=== PATIENT | male | born 1970 | race Caucasian/White ===

== ENCOUNTER 2025-05-01 17:33 | Emergency (ER) | payer OTHER, SELFPAY ==
--- NOTE | ~2025-05-01 | XR_ITS ---
CLINICAL HISTORY: fall, injury, lac, pain 4 view left knee Comparison: None provided Findings: Bones intact. No dislocations. No significant loss of joint space, osteophytes, or erosions. No joint effusion. Infrapatellar soft tissue swelling. Two small radiopaque densities in the subcutaneous tissues anteromedial to the patella measuring up to 1 mm may be foreign bodies. IMPRESSION: 1. No acute osseous injury. 2. Infrapatellar soft tissue swelling. 3. Two small radiopaque densities in the subcutaneous tissues anteromedial to the patella measuring up to 1 mm may be foreign bodies. This document has been electronically signed by: Juan Carlos Zavala MD on 05/01/2025 18:33:42
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
[2025-05-01 17:59] VITALS: BP 162/90; PULSE 90; RESP 19; TEMP 36.6; O2SAT 98; BMI 24.0
[2025-05-01] MEDS: Lidocaine HCl 1%/Epi 1:100,000 10 ML VIAL 30 ML SUBCUT (21:32)
[2025-05-01 22:00] VITALS: BP 147/79; PULSE 78; TEMP 37.2; O2SAT 96
[2025-05-01 23:05] VITALS: BP 147/79; PULSE 78; RESP 16; TEMP 37.2; O2SAT 96
== END 2025-05-01 23:04 | disposition home or self-care (01) ==
PROVIDERS: Emergency Provider Emergency Medicine
DX: S81.012A Laceration without foreign body, left knee, initial encounter (principal); V18.0XXA Pedal cycle driver injured in noncollision transport accident in nontraffic accident, initial encounter; M25.562 Pain in left knee; Y93.55 Activity, bike riding; Y92.828 Other wilderness area as the place of occurrence of the external cause; Y99.8 Other external cause status
CPT/HCPCS: 12034; 73564; 99284; J2004

== ENCOUNTER → 2025-05-01 18:01 | Outpatient (BNV) | payer SELFPAY | PROVIDERS: Visit Provider Radiology Diagnostic Radiology | DX: R22.42 Localized swelling, mass and lump, left lower limb (principal) | CPT/HCPCS: 73564 ==

== ENCOUNTER 2025-05-03 15:07 | Inpatient (IN) | payer OTHER, SELFPAY ==
--- NOTE | ~2025-05-03 | CT_ITS ---
CLINICAL HISTORY: Cellulitis vs septic arthritis CT left knee with intravenous contrast Comparison: CR - XR KNEE LT 4V - 05/01/25 18:20 EDT Findings: Subcutaneous fluid and edema in the anterior soft tissues of the knee without rim enhancement. Trace subcutaneous air likely from laceration. 2 mm subcutaneous foreign body versus ossicle ( series 3 axial image 79/196). Small joint effusion with partial rim enhancement concerning for developing septic arthritis. Visualized vessels are patent. No acute fracture or dislocation. IMPRESSION: 1. Small joint effusion with partial rim enhancement concerning for developing septic arthritis. 2. Subcutaneous fluid, edema, and trace air in the anterior soft tissues of the knee, likely combination of posttraumatic changes and cellulitis. 3. 2 mm subcutaneous foreign body versus ossicle. This document has been electronically signed by: Juan Carlos Zavala MD on 05/03/2025 22:19:21
[2025-05-03 15:32] VITALS: BP 142/82; PULSE 76; RESP 18; TEMP 36.8; O2SAT 99; BMI 23.8
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
[2025-05-03 15:53] LABS: MANUAL DIFF FLAG NO
[2025-05-03 15:55] LABS: Hematocrit 45.0 % (42.0-52.0); Hemoglobin 15.0 g/dl (14.0-18.0); Imm Gran Abs Auto 0.04 X10*3/uL (0.00-0.03); Imm Gran Pct Auto 0.4 % (0.0-0.4); Lymphocytes Absolute Auto 0.9 X10*3/uL (1.2-4.9); Mean Corpuscular HGB Conc 33.3 g/dl (31.0-36.0); Mean Corpuscular Hemoglobin 28.6 pg (27.0-33.0); Mean Corpuscular Volume 85.7 fL (80.0-98.0); NRBC Abs Auto 0.000 X10*3/uL (0.0-0.012); NRBC Pct Auto 0.0 /100WBC (0.0-0.2); Platelet Count 201 X10*3/uL (160-400); Red Blood Count 5.25 X10*6/uL (4.60-5.80); White Blood Count 10.8 X10*3/uL (4.8-10.8)
[2025-05-03 16:10] LABS: Alanine Aminotransferase 97 U/L (0-40); Albumin Level 4.8 g/dL (3.5-5.0); Alkaline Phosphatase 68 U/L (39-117); Anion Gap 13 (12-20); Aspartate Amino Transferase 66 U/L (5-37); Blood Urea Nitrogen 15 mg/dL (9-16); Calcium 9.9 mg/dL (8.4-10.2); Carbon Dioxide 27 mmol/L (22-29); Chloride 103 mmol/L (96-108); Creatinine Clr Calc Pharmacy 98.0; Estimated Glomerular Filt Rate > 60; Potassium 4.0 mmol/L (3.3-5.1); Sodium 139 mmol/L (135-145); Total Protein 7.8 g/dL (6.5-8.0)
[2025-05-03 19:32] VITALS: BP 138/75; PULSE 75; RESP 18; TEMP 36.7; O2SAT 96
[2025-05-03 20:08] VITALS: BP 130/79; PULSE 71; RESP 16; TEMP 37; O2SAT 96
[2025-05-03 21:02] VITALS: BP 140/81; PULSE 73; RESP 18; TEMP 36.8; O2SAT 98
[2025-05-03] MEDS: vancomycin/NS 2,000 MG/500 ML PLAST..BAG 250 MG IV (21:09)
[2025-05-03] MEDS: iohexoL 350 MG/ML 100 ML INFUS..BTL IV (21:20)
--- NOTE | 2025-05-03 21:22 | P.HPHOSP_ITS ---
History of Present Illness Date of Service: 05/03/25 Attending physician on admission: Mayra Jean Baptiste Chief Complaint: Right thigh/knee pain Mati Bloom is a 54 years old man with past medical history significant for type 2 diabetes mellitus on metformin, hyperlipidemia and hypertension presents to the emergency department after he sustained a left knee laceration 2 days ago. This laceration with sutured and was discharged home to complete a course of 2 antibiotics: Doxycycline and cefepime. He comes today because his knee is quite swollen and red. He denied any discharges from the laceration area. He does have pain upon flexing the knee. He has been taking ibuprofen for pain. He denied any fever or chills. He also denied any acute cardiopulmonary, gastrointestinal or genitourinary symptoms. He denied tobacco smoking, alcohol abuse or illicit drug use. Last Tdap vaccine was 3 years ago. In the ED, he was found to have stable vital signs. Blood workup showed no leukocytosis. CRP is 17.3. Hemoglobin and platelets are normal. There are no electrolyte imbalances. Renal function is normal. His glucose 221. Transaminases and total bilirubin are slightly elevated. Alk-phos is normal. Right knee x-ray (May 03, 2025) showed no acute osseous injury, infrapatellar soft tissue swelling, 2 small radiopaque densities in the subcutaneous tissue anteromedial to the patella measuring up to 1 mm may be foreign bodies. ED tx: Ceftriaxone 2 g IV, vancomycin 2 g IV Review of Systems 2 Review of Systems: All 12 systems were reviewed and normal except as noted in HPI. [facility] Medical History (Updated 05/03/25 @ 22:34 by Mayra Jean Baptiste MD) Type 2 diabetes mellitus Hypertension Social History Alcohol intake: current Alcohol intake frequency: former alcohol drinker Smoked in Last 30 Days: No Use of substances other than those prescribed or required for medical reasons: No Advance Directives: No Advance Directives Information Provided: No Do you have a plan to hurt others: No Plan Meds Allergies Allergy/AdvReac Type Severity Reaction Status Date / Time Penicillins Allergy Unknown Unknown Verified 05/03/25 15:35 Active Medications: Current Medications Sodium Chloride (Ns) 1,000 mls @ 999 mls/hr IV .Q1H1M KADI Stop: 05/03/25 21:45 Last Admin: 05/03/25 20:54 Dose: 999 mls/hr Vancomycin HCl (Vancomycin/Ns) 2,000 mg in 500 mls @ 250 mls/hr IV ONCE ONE Stop: 05/03/25 22:43 Last Admin: 05/03/25 21:09 Dose: 250 mls/hr Home Medications ?Medication ?Instructions ?Recorded ?Confirmed ?Last Taken ?Type acetaminophen 500 mg tablet 500 mg PO Q6H PRN Pain 05/03/25 Unknown History atorvastatin 20 mg tablet 10 mg PO DAILY 05/03/2504/1205/03/25 History lisinopril 40 mg tablet 20 mg PO DAILY 05/03/2504/1205/03/25 History metformin 500 mg tablet 500 mg PO BID 05/03/2505/0305/03/25 History Physical Exam 2 Vital Signs and Narrative: Vital Signs: Last Vital Signs Temp 98.2 F 05/03/25 21:02 Pulse 73 05/03/25 21:02 Resp 18 05/03/25 21:02 BP 140/81 H 05/03/25 21:02 Pulse Ox 98 05/03/25 21:02 O2 Del Method Room Air 05/03/25 21:02 BMI result Body Mass Index 23.8 Constitutional - Awake and Alert, No apparent distress HEENT - PERRLA, EOMI Heart - RRR, No murmurs Lungs - Normal lung expansion, Normal respiratory effort, No respiratory distress, CTA bilaterally Abdominal - NT / ND; +BS; No rebound or guarding Extremities: Musculoskeletal - Normal inspection, normal ROM Skin - Warm/Dry Neurological - Alert & oriented x3. Moving all extremities spontaneously. Normal speech. Psychological - Appropriate affect Results Labs 05/03/25 15:47 05/03/25 15:47 Labs: Laboratory Results - last 24 hr 05/03/25 15:47 MCV 85.7 MCH 28.6 MCHC 33.3 RDW 13.2 Plt Count 201 MPV 9.8 Immature Gran % (Auto) 0.4 Neut % (Auto) 83.8 H Lymph % (Auto) 8.5 L [place] % (Auto) 5.8 Eos % (Auto) 1.1 Baso % (Auto) 0.4 Lymph # (Auto) 0.9 L [place] # (Auto) 0.6 Eos # (Auto) 0.1 Baso # (Auto) 0.0 Abs Immat Gran (auto) 0.04 H Absolute Neuts (auto) 9.1 H Absolute Nucleated RBC 0.000 Nucleated RBC % (auto) 0.0 ESR 14 Anion Gap 13 Estim Creat Clear Calc 98.0 Estimated GFR > 60 Random Glucose 221 H Lactic Acid 1.3 Calcium 9.9 Total Bilirubin 1.1 H AST 66 H ALT 97 H Alkaline Phosphatase 68 C-Reactive Protein 17.63 H Total Protein 7.8 Albumin 4.8 Assessment and Plan (1) Cellulitis of left leg: Status: Acute (2) Hyperlipidemia: Qualifiers: Hyperlipidemia type: unspecified Qualified Code(s): E78.5 - Hyperlipidemia, unspecified Status: Acute (3) Hyperglycemia: Status: Acute Plan Mati Bloom is a 54 y/o man presents with: Left knee infected laceration associated with cellulitis and possible prepatellar bursitis. CT scan results: Concerning for developing septic arthritis . Admit to Med surge. Continue empiric IV antibiotic therapy with vancomycin and ceftriaxone. Elevate extremity. Apply ice as needed. Discuss with ortho Service: Recommended IV antibiotics for now, elevate extremity, NPO after midnight and we will evaluate in the morning. Type 2 diabetes mellitus. Metformin on hold due to recent IV contrast administration. BG checks before meals at bedtime. Insulin sliding scale. Diabetic diet. Hyperlipidemia. Continue statin. Essential hypertension. Continue lisinopril 10 mg PO for now. (patient is supposed to be taking 40 mg PO daily but he has been taking the half because his SBP is usually in the low 100s. Elevated transaminases. Likely secondary to statin. Continue to monitor closely. Code status: Full DVT prophylaxis: Lovenox Patient will need hospitalization for at least 2 midnights for IV antibiotic therapy as he failed outpatient treatment, pain control and evaluation by Orthopedic surgery. Quality Stroke Does the patient have a stroke diagnosis?: No VTE Prior VTE?: No VTE Risk Level:: Medical - moderate - high VTE Device Contraindication: Treatment Not Indicated VTE Drug Contraindication: N/A - Med Ordered
--- NOTE | 2025-05-03 21:40 | PC.NURSE ---
hosptialist at [facility]
--- NOTE | 2025-05-03 22:19 | PHA.MEDREC ---
Addendum entered by Damir Juares RPh 05/03/25 22:29: MED REC REVIEWED BY [facility] Original Note: Pharmacy Consult ? Medication Reconciliation Pharmacy has completed the medication reconciliation. Spoke with pt and he confirmed his medications. Pt confirmed he started the Cephalexin 500mg and Doxycycline 100mg regimens yesterday; pt stated the Dr chetna frederick upon returning, told him to stop taking the antibiotics. Per pt he is now taking the Atorvastatin 20mg tab, 10mg daily (as of a few months ago) and the Lisinopril 40mg tab, 20mg daily (as of a few weeks ago); stating his cholesterol and blood pressure were 'normal' and despite his Dr not oking these changes the pt cut them anyway.
[2025-05-03 22:24] LABS: Glucose, Whole Blood 127 mg/dL (60-115)
[2025-05-04] VITALS (7 sets, daily range): BP systolic 124–149; BP diastolic 72–84; PULSE 63–82; RESP 16–18; TEMP 36.4–37.1; O2SAT 95–97; BMI 23.5
[2025-05-04] MEDS: 0.9 % Sodium Chloride Flush 3 ML SYRINGE IVFLUSH ×4 (00:06→21:10)
[2025-05-04 04:48] LABS: MANUAL DIFF FLAG NO
[2025-05-04 04:49] LABS: Hematocrit 36.5 % (42.0-52.0); Hemoglobin 12.6 g/dl (14.0-18.0); Imm Gran Abs Auto 0.05 X10*3/uL (0.00-0.03); Imm Gran Pct Auto 0.6 % (0.0-0.4); Lymphocytes Absolute Auto 0.8 X10*3/uL (1.2-4.9); Mean Corpuscular HGB Conc 34.5 g/dl (31.0-36.0); Mean Corpuscular Hemoglobin 29.1 pg (27.0-33.0); Mean Corpuscular Volume 84.3 fL (80.0-98.0); NRBC Abs Auto 0.000 X10*3/uL (0.0-0.012); NRBC Pct Auto 0.0 /100WBC (0.0-0.2); Platelet Count 169 X10*3/uL (160-400); Red Blood Count 4.33 X10*6/uL (4.60-5.80); White Blood Count 7.9 X10*3/uL (4.8-10.8)
[2025-05-04 05:10] LABS: Anion Gap 12 (12-20); Blood Urea Nitrogen 12 mg/dL (9-16); Calcium 8.6 mg/dL (8.4-10.2); Carbon Dioxide 24 mmol/L (22-29); Chloride 107 mmol/L (96-108); Creatinine Clr Calc Pharmacy 116.0; Estimated Glomerular Filt Rate > 60; Potassium 3.8 mmol/L (3.3-5.1); Sodium 139 mmol/L (135-145)
[2025-05-04 07:20] LABS: Glucose, Whole Blood 158 mg/dL (60-115)
--- NOTE | 2025-05-04 07:20 | PC.NURSE ---
surgeons at bedside, npo reversed no plan to tap the left knee at this time
--- NOTE | 2025-05-04 07:21 | HO.PM.IMPN ---
Subjective Subjective Date of Service: 05/04/25 Interval History: f/u on cellulitis of the knee redness is better and has full ROM in the knee Physical Exam Vital Signs: Vital Signs: Last Vital Signs Temp 98.3 F 05/04/25 06:09 Pulse 82 05/04/25 06:09 Resp 16 05/04/25 06:09 BP 128/72 05/04/25 06:09 Pulse Ox 97 05/04/25 06:09 O2 Del Method Room Air 05/04/25 06:09 BMI result Body Mass Index 23.8 General: AO X 3, no acute distress Resp: CTA bilateral CVS: S1,S2,RRR GI: +BS, NT, no distention Skin: see pics from handp from 05/03 by nicole, Neuro: motor grossly intact Psych: appropriate affect Objective Data Active Medications Acetaminophen (Acetaminophen 325 Mg Tablet) 975 mg PO Q6H PRN PRN Reason: Pain, Mild 1-3,fever,headache Atorvastatin Calcium (Atorvastatin Calcium 10 Mg Tablet) 10 mg PO DAILY [facility] Calcium Carbonate (Calcium Carbonate 750 Mg Tab.Chew) 750 mg PO Q4H PRN PRN Reason: Heartburn Ceftriaxone Sodium (Ceftriaxone Sodium 1 Gm Vial) 1 gm IVPUSH Q24H [facility] Dextrose (Dextrose 50 % 25 Gm/50 Ml Syringe) 25 gm IVPUSH Q15M PRN; Protocol PRN Reason: per Hypoglycemia Standing Ord. Enoxaparin Sodium (Enoxaparin Sodium 40 Mg/0.4 Ml Syringe) 40 mg SUBCUT Q24H [facility] Glucose (Glucose Gel 15 Gm Gel..Gram.) 15 gm PO Q15M PRN; Protocol PRN Reason: per Hypoglycemia Standing Ord. Vancomycin HCl 1,000 mg/ (Sodium Chloride) 270 mls @ 270 mls/hr IV Q12H [facility] Ibuprofen (Ibuprofen 600 Mg Tablet) 600 mg PO Q8H PRN PRN Reason: Pain, Moderate(Pain Scale 4-6) Insulin Human Lispro (Insulin Lispro 100 Unit/Ml 3 Ml Vial) 0 unit SUBCUT QIDACHS [facility]; Protocol Last Admin: 05/03/25 23:15 Dose: Not Given Documented By: MARK Non-Admin Reason: No Insulin Coverage Lisinopril (Lisinopril 10 Mg Tablet) 10 mg PO DAILY [facility]; Protocol Magnesium Hydroxide (Milk Of Magnesia 30 Ml Oral.Susp) 30 ml PO DAILY PRN PRN Reason: Constipation Melatonin (Melatonin 3 Mg Tablet) 6 mg PO BEDTIME PRN PRN Reason: Insomnia Oxycodone HCl (Oxycodone Hcl Immed Release 5 Mg Tablet) 5 mg PO Q6H PRN PRN Reason: Pain, Severe (Pain Scale 7-10) Pharmacy Consult (Consult Rx Vancomycin Dosing) 1 each MISCELLANE DAILY PRN PRN Reason: Consult order Sodium Chloride (0.9 % Sodium Chloride Flush 3 Ml Syringe) [facility] Last Admin: 05/04/25 00:06 Dose: 3 ml Documented By: JOSAFAT Labs 05/04/25 04:38 05/04/25 04:38 Labs: Laboratory Results - last 24 hr 05/03/25 05/03/25 05/04/25 15:47 22:19 04:38 MCV 85.7 84.3 MCH 28.6 29.1 MCHC 33.3 34.5 RDW 13.2 13.0 Plt Count 201 169 MPV 9.8 9.9 Immature Gran % (Auto) 0.4 0.6 H Neut % (Auto) 83.8 H 78.9 H Lymph % (Auto) 8.5 L 10.6 L Scott % (Auto) 5.8 7.6 Eos % (Auto) 1.1 1.9 Baso % (Auto) 0.4 0.4 Lymph # (Auto) 0.9 L 0.8 L Scott # (Auto) 0.6 0.6 Eos # (Auto) 0.1 0.2 Baso # (Auto) 0.0 0.0 Abs Immat Gran (auto) 0.04 H 0.05 H Absolute Neuts (auto) 9.1 H 6.3 Absolute Nucleated RBC 0.000 0.000 Nucleated RBC % (auto) 0.0 0.0 ESR 14 Anion Gap 13 12 Estim Creat Clear Calc 98.0 116.0 Estimated GFR > 60 > 60 POC Glucose 127 H Random Glucose 221 H 160 H Lactic Acid 1.3 Calcium 9.9 8.6 D Total Bilirubin 1.1 H AST 66 H ALT 97 H Alkaline Phosphatase 68 C-Reactive Protein 17.63 H 14.13 H Total Protein 7.8 Albumin 4.8 05/04/25 07:17 MCV MCH MCHC RDW Plt Count MPV Immature Gran % (Auto) Neut % (Auto) Lymph % (Auto) Scott % (Auto) Eos % (Auto) Baso % (Auto) Lymph # (Auto) Scott # (Auto) Eos # (Auto) Baso # (Auto) Abs Immat Gran (auto) Absolute Neuts (auto) Absolute Nucleated RBC Nucleated RBC % (auto) ESR Anion Gap Estim Creat Clear Calc Estimated GFR POC Glucose 158 H Random Glucose Lactic Acid Calcium Total Bilirubin AST ALT Alkaline Phosphatase C-Reactive Protein Total Protein Albumin Assessment and Plan (1) Cellulitis of left leg: Status: Acute (2) Hyperglycemia: Status: Acute (3) Hyperlipidemia: Status: Acute Plan 54/m with T2DM, HLD, HTN here with Left knee infected laceration associated with cellulitis and possible prepatellar bursitis. CT Concerning for developing septic arthritis, low likelihood given normal ESR Ortho advises IV Abx and possible I&D later if not improving Continue Vanco and Ceftriaxone started 05/03 Type 2 diabetes mellitus. Metformin on hold for recent iv contrast SSI, diabetic diet Hyperlipidemia Lipitor HTN Lisinopril Elevated transaminases. Likely secondary to statin. Continue to monitor closely. Code status: Full DVT prophylaxis: Lovenox y. Quality Stroke Does the patient have a stroke diagnosis?: No VTE Prior VTE?: No VTE Risk Level:: Medical - moderate - high VTE Device Contraindication: Treatment Not Indicated VTE Drug Contraindication: N/A - Med Ordered
--- NOTE | 2025-05-04 08:34 | PC.NURSE ---
Addendum entered by Samy Cruz RN 05/04/25 09:35: Redness on L knee radiates up towards groin area Original Note: pt is calm, cooperative. A+OX4 and normally ambulates. L knee red and a bit swollen from laceration repair on Thursday. Pt denies any pain when at rest, sts hurts when he moves it. Pt denies any CP or SOB. No other complaints.
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
--- NOTE | 2025-05-04 10:28 | PC.NURSE ---
Pt A+OX3; reports + decrease in pain to L knee with meds gv in ER; reddened area to L knee/leg circled by this RN with surgical marker, dated/timed; family at bedside; awaiting bed for admission
[2025-05-04 11:44] LABS: Glucose, Whole Blood 158 mg/dL (60-115)
--- NOTE | 2025-05-04 14:31 | MHC.CM.PN ---
Pt. lives with his and family, he does not use home health services or DME. PCP is: Kathy Cisneros, BULB TESTER at [facility]. Family to transport home at DC, DCP: home, self care. CM to follow for DC needs.
[2025-05-04 16:14] LABS: Glucose, Whole Blood 131 mg/dL (60-115)
[2025-05-04 20:01] LABS: Glucose, Whole Blood 151 mg/dL (60-115)
[2025-05-05 03:17] VITALS: BP 103/64; PULSE 62; RESP 18; TEMP 36.4; O2SAT 96
[2025-05-05 06:48] LABS: Creatinine Clr Calc Pharmacy 122.5; Estimated Glomerular Filt Rate > 60
[2025-05-05 07:26] VITALS: BP 112/63; PULSE 65; RESP 18; TEMP 36.6; O2SAT 95
[2025-05-05 07:31] LABS: Glucose, Whole Blood 137 mg/dL (60-115)
--- NOTE | 2025-05-05 08:20 | PM.PNORT ---
Subjective Subjective Date of Service: 05/05/25 Interval history: Patient ambulating to the restroom upon entering the room. Using a walker to assist with ambulation but able to full weightbear on the left lower extremity. Reports that the redness and pain has decreased since being on IV antibiotics. Does not report pain. No additional complaints. Physical Exam Vital Signs: Vital Signs: Last Vital Signs Temp 97.9 F 05/05/25 07:26 Pulse 65 05/05/25 07:26 Resp 18 05/05/25 07:26 BP 112/63 05/05/25 07:26 Pulse Ox 95 05/05/25 07:26 O2 Del Method Room Air 05/05/25 07:26 BMI result Body Mass Index 23.5 Extrem: Other: Left lower extremity: Erythema previously outlined has decreased with IV antibiotics. Able to weightbear. Sutures are intact over patella. No drainage. No signs of deep joint infection. Sensation intact. Pedal pulse intact. Procedures Date of Service Date of Service: 05/05/25 Progress Note: A&P Assessment and plan (1) Cellulitis of left leg: Status: Acute (2) Type 2 diabetes mellitus: Status: Acute Plan No evidence of joint infection at this time Cellulitis seems to be improving with IV antibiotics No surgical indication at this time Continue to monitor for improving symptoms WBAT Time Spent With Patient Time: Total time managing care of this patient today ____ minutes. Quality Stroke Does the patient have a stroke diagnosis?: No VTE Prior VTE?: No VTE Risk Level:: Medical - moderate - high VTE Device Contraindication: Treatment Not Indicated VTE Drug Contraindication: N/A - Med Ordered
[2025-05-05 11:39] LABS: Glucose, Whole Blood 131 mg/dL (60-115)
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
[2025-05-05 11:44] VITALS: BP 130/74; PULSE 69; RESP 16; TEMP 36.9; O2SAT 96
--- NOTE | 2025-05-05 12:17 | MHC.CM.PN ---
Patient is discharged to home selfcare today. He has arranged for transportation home.
== END 2025-05-05 13:31 | disposition home or self-care (01) | DRG 721 ==
LOC: HO.ED 21:01 → HO.EDOVER 22:09 → HO.S3 05-04 13:50
PROVIDERS: Registered Nurse Emergency; Admitting Provider Internal Medicine; Emergency Provider Internal Medicine; PCP Nurse Practitioner Primary Care; Visit Provider Internal Medicine
DX: T81.41XA Infection following a procedure, superficial incisional surgical site, initial encounter (principal); L03.116 Cellulitis of left lower limb; E11.9 Type 2 diabetes mellitus without complications; E78.5 Hyperlipidemia, unspecified; I10 Essential (primary) hypertension; R74.01 Elevation of levels of liver transaminase levels; T46.6X5A Adverse effect of antihyperlipidemic and antiarteriosclerotic drugs, initial encounter; Z79.84 Long term (current) use of oral hypoglycemic drugs; Z79.899 Other long term (current) drug therapy
CPT/HCPCS: 36415; 73701; 80048; 80053; 80202; 82565; 82947; 83605; 85025; 85652; 86140; 87040; 87147; 87205; 99285; J0696; J1650; J3373; J3374; Q9967

== ENCOUNTER → 2025-05-03 20:45 | Outpatient (BNV) | payer OTHER, SELFPAY | PROVIDERS: Admitting Provider Internal Medicine; Emergency Provider Internal Medicine; Visit Provider Radiology Diagnostic Radiology | DX: M25.462 Effusion, left knee (principal); R60.0 Localized edema | CPT/HCPCS: 73701 ==

== ENCOUNTER → 2025-05-03 21:46 | Outpatient (BNV) | payer OTHER, SELFPAY | PROVIDERS: Admitting Provider Internal Medicine; Emergency Provider Internal Medicine | DX: L03.116 Cellulitis of left lower limb (principal) | CPT/HCPCS: 99222 ==

== ENCOUNTER → 2025-05-03 21:46 | Outpatient (BNV) | payer OTHER, SELFPAY | PROVIDERS: Admitting Provider Internal Medicine; Emergency Provider Internal Medicine; Visit Provider Internal Medicine | DX: L03.116 Cellulitis of left lower limb (principal); R73.9 Hyperglycemia, unspecified; E78.5 Hyperlipidemia, unspecified | CPT/HCPCS: 99223; 99232 ==

== ENCOUNTER 2025-05-16 08:30 | Outpatient (AMB) | payer OTHER, SELFPAY ==
--- OUTSIDE RECORDS SUMMARY | 2025-05-16 08:42 | XMS_ITS | Clinical Summary ---
Author Organization [facility]erg[facility] With [facility] Address [address] [place] [phone] Phone Care Team Providers Care Forest Fire Control Officer Name Role Phone Pcp, Unknown Primary Care Provider Unavailabl e Allergies Active Allergy Reactions Criticality Noted Date Comments Penicillins 01/01/2022 Medications metFORMIN (GLUCOPHAGE) 500 MG tablet Take 1 tablet (500 mg total) by mouth 2 (two) times a day with meals. 60 tablet 01/01/2022 Active Social History Tobacco Use Types Packs/Day Years Used Date Smoking Tobacco: Former Smokeless Tobacco: Never Alcohol Use Standard Drinks/Week Comments Never 0 (1 standard drink = 0.6 oz pur e alcohol) Education Answer Date Recorded Are you interested in more education? Not on minor e 02/06/2023 Are you concerned about learning? Not on file 02/06/2023 No 02/06/2023 No 02/06/2023 Digital Access Answer Date Recorded No 03/09/2023 No 03/09/2023 No 03/09/2023 Reliable internet access at home? Not on file 03/09/2023 Device with a working camera? Not on file Sex and Gender Information Value Date Recorded Sex Assigned at Male 01/01/2022 7:24 AM EDT Legal Sex Male 9:33 PM EDT Gender Identity Male 01/01/2022 7:24 AM EDT Sexual Orientation Not on file Last Filed Vital Signs Vital Sign Reading Time Taken Comments Blood Pressure 145/89 01/01/2022 10:51 AM EDT Pulse 84 01/01/2022 10:51 AM EDT Temperature 36.8 C (98.2 F) 01/01/2022 10:51 AM EDT Respiratory Rate 18 01/01/2022 10:5 1 AM EDT Oxygen Saturation 96% 01/01/2022 10: 51 AM EDT Inhaled Oxygen Concentration - - Weight 73.1 kg (161 lb 2.5 oz) 01/01/2022 9:19 AM EDT Weight on hospital scale by Dr. Holbrook Height 177.8 cm (5' 10 ) 01/01/2022 7:2 2 AM EDT Body Mass Index 23.12 01/01/2022 7:22 AM EDT Plan of Treatment Health Maintenance Due Date Last Done Comments Adult Td,Tdap Booster 1971 LIPID PANEL 1971 DEPRESSION SCREENING 1983 SMOKING Hx and SMOKELESS TOBACCO SCREENING 1984 HEPATITIS C SCREENING 1989 HIV ONE-TIME SCREENING (18-6 5 YEARS) 1989 COLOGUARD 2016 COLONOSCOPY 2016 COLORECTAL CANCER SCREENING 2016 FIT TEST 2016 FOBT 2016 SIGMOIDOSCOPY 2016 VIRTUAL COLONOSCOPY 2016 PNEUMOCOCCAL VACCINES (50+ years) (2 of 2 - PCV) 2021 08/23/2013 ZOSTER VACCINES (1 of 2) 2021 COVID-19 VACCINE (3 - 2023-2 5 season) 2024 02/02/2021, 01/11/2021 HEPATITIS A VACCINES Aged Out No long er eligible based on patient's age to complete this topic HIB VACCINES Aged Out No longer eligi ble based on patient's age to complete this topic MENINGOCOCCAL VACCINES (ACWY) Aged Out No longer eligible based on patient's age to complete this topic MENINGOCOCCAL VACCINES (B) Aged Out N o longer eligible based on patient's age to complete this topic Medical Devices Not on file Insurance [employer] [place] [address] [place] [address] [employer] DIRECT [employer] [place] [address] [place] [address] [employer] DIRECT Care Teams Forest Fire Control Officer Relationship Specialty Start Date End Date Pcp, Unknown PCP - General 01/01/22 Additional Source Comments The information contained in this document represents components of the legal health record. It is not the complete legal health record.[facility]
[2025-05-16 09:21] VITALS: BMI 23.4
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
== END 2025-05-16 09:21 | disposition home or self-care (01) ==
LOC: HO.HOS 08:31
PROVIDERS: PCP Nurse Practitioner Primary Care; Visit Provider Physician Assistant
DX: L03.116 Cellulitis of left lower limb (principal)
CPT/HCPCS: 99213